=== PATIENT | male | born 1950 | race Caucasian/White ===

== ENCOUNTER 2021-06-06 23:13 | Observation (INO) | payer OTHER ==
[~2021-06-06] VITALS: Ht 167.6 cm; Wt 78.4 kg
[2021-06-06] MEDS ORDERED: LISI40TA4 PO (23:55)
[2021-06-06] MEDS ORDERED: METF10004 PO (23:55)
[2021-06-06] MEDS ORDERED: ATOR40TA75 PO (23:55)
[2021-06-07 00:46] LABS: BASO # 0.1 10^3/uL (0.0-0.2); BASO % 0.4 % (0.0-1.0); EOS # 0.3 10^3/uL (0.0-0.5); EOS % 1.7 % (0.0-3.0); HEMATOCRIT 50.9 % (42.0-52.0); HEMOGLOBIN 16.4 g/dl (13.5-17.5); LYMPH % 5.8 % (24.0-44.0); MEAN CORPUSCULAR HEMOGLOBIN 29.5 pg (27.0-33.0); MEAN CORPUSCULAR HGB CONC 32.2 g/dl (32.0-36.5); MEAN CORPUSCULAR VOLUME 91.5 fl (80.0-96.0); MONO # 1.6 10^3/uL (0.0-0.8); MONO % 8.9 % (2.0-8.0); NEUTROPHILS # 14.7 10^3/uL (1.5-8.5); NEUTROPHILS % 82.6 % (36.0-66.0); PLATELET COUNT, AUTOMATED 283 10^3/uL (150-450); RED BLOOD COUNT 5.56 10^6/uL (4.30-6.10)
[2021-06-07 01:16] LABS: WHITE BLOOD COUNT 17.8 10^3/uL (4.0-10.0)
[2021-06-07 01:27] LABS: BILIRUBIN,DIRECT 0.1 MG/DL (0.0-0.2); BILIRUBIN,TOTAL 0.5 MG/DL (0.2-1.0); CALCIUM LEVEL 9.8 MG/DL (8.8-10.2); CREATININE FOR GFR 1.7 MG/DL (0.70-1.30); GLOMERULAR FILTRATION RATE 42.4 (>42); POTASSIUM SERUM 4.7 MEQ/L (3.5-5.1); TOTAL PROTEIN 7.4 GM/DL (6.4-8.2)
[2021-06-07] MEDS ORDERED: NS 1,000 ML IV ONE (01:50)
--- NOTE | 2021-06-07 02:40 | REPVR ---
PROCEDURE INFORMATION: Exam: CT Abdomen And Pelvis Without Contrast Exam date and time: 06/07/2021 1:49 AM Age: 71 years old Clinical indication: Abdominal pain; Flank; Right; Additional info: Right flank pain TECHNIQUE: Imaging protocol: Computed tomography of the abdomen and pelvis without contrast. Radiation optimization: All CT scans at this facility use at least one of these dose optimization techniques: automated exposure control; mA and/or kV adjustment per patient size (includes targeted exams where dose is matched to clinical indication); or iterative reconstruction. COMPARISON: No relevant prior studies available. FINDINGS: Liver: Normal. No mass. Gallbladder and bile ducts: Normal. No calcified stones. No ductal dilation. Pancreas: Normal. No ductal dilation. Spleen: The spleen demonstrates punctate calcifications, consistent with remote granulomatous organism exposure. Adrenal glands: Normal. No mass. Kidneys and ureters: Obstructing 7 x 5 mm right ureteral calculus within the pelvis, approximately 5 cm from the right vesicoureteral junction. Moderate right hydroureter and hydronephrosis. Stomach and bowel: Mild diverticulosis coli. Appendix: No evidence of appendicitis. Intraperitoneal space: Unremarkable. No free air. No significant fluid collection. Vasculature: Unremarkable. No abdominal aortic aneurysm. Lymph nodes: Unremarkable. No enlarged lymph nodes. Urinary bladder: Unremarkable as visualized. Reproductive: Unremarkable as visualized. Bones/joints: Unremarkable. No acute fracture. Soft tissues: Small fat protruding inguinal hernias. IMPRESSION: 1. Obstructing 7 x 5 mm right ureteral calculus within the pelvis, approximately 5 cm from the right vesicoureteral junction. Moderate right hydroureter and hydronephrosis. 2. Mild diverticulosis coli. 3. Small fat protruding inguinal hernias. Electronically signed by: Javed Tobin On 06/07/2021 02:39:36 AM
[2021-06-07] MEDS ORDERED: NS 1,000 ML IV SCH (03:20)
[2021-06-07] MEDS ORDERED: KETOROLAC 30 MG/ML 1ML VIAL IV PRN (03:40)
[2021-06-07] MEDS ORDERED: ONDANSETRON 4MG/2ML VIAL IV PRN (03:40)
[2021-06-07] MEDS ORDERED: DEXTROSE 50% 50 ML SYRINGE IV PRN ×2 (03:40→18:55)
[2021-06-07] MEDS ORDERED: GLUCOSE 4GM CHEW TABLET PO PRN ×2 (03:40→18:55)
[2021-06-07] MEDS ORDERED: GLUCAGON INJ 1MG VIAL SC PRN ×2 (03:40→18:55)
[2021-06-07] MEDS ORDERED: MORPHINE 4 MG/ML 1ML VIAL/SYRINGE (J2270) IV PRN (03:40)
[2021-06-07] MEDS: NS 1,000 ML IV SCH ×2 (03:40→18:48)
[2021-06-07] MEDS ORDERED: ASPI-161 PO (03:51)
[2021-06-07] MEDS ORDERED: LISI40TA4 PO (03:51)
[2021-06-07] MEDS ORDERED: METF-877 PO (03:51)
[2021-06-07] MEDS ORDERED: ATOR80TA59 PO (03:51)
[2021-06-07] MEDS ORDERED: XALA0.007 OU (03:51)
[2021-06-07] MEDS ORDERED: TIMO0.5S3 OU (03:51)
[2021-06-07] MEDS ORDERED: FINA5TAB2 PO (03:51)
--- NOTE | 2021-06-07 03:53 | HPEPDOC ---
[facility] Medical History & Physical Date of Admission Jun 07, 2021 Date of Service: Jun 07, 2021 Attending Physician: KAYLIN CLARK DO History and Physical CHIEF COMPLAINT: [71 y/o male c/o right sided abd pain x1 week] HISTORY OF PRESENT ILLNESS: [This is a 71 y/o male with a pmh of hld, htn and niddm2 who presents to our ED with a cc of right sided abd/flank pain that has been increasing over the past week. Patient states that the pain is severe in nature and comes and goes. Patient states that the pain was severe to the point of vomiting several times today. Patient states that other than the pain he feels mostly fine. Patient states that he had one kidney stone approx 30 years ago but states that he was able to pass that one. Patient denies any dysuria, hematuria, diarrhea, constipation, fevers, chills, chest pain, sob, cough, wheezing, pedal edema. Patient found to have right sided obstructing stone 7x5mm on CT imaging in our ED.] PAST MEDICAL HISTORY: 1. [See HPI PAST SURGICAL HISTORY: 1. [Reviewed - none SOCIAL HISTORY: Tobacco use:[Denies] ETOH: [Denies] Illicit drug use: [Denies] FAMILY HISTORY: Reviewed - none pertinent ALLERGIES: Please see below. REVIEW OF SYSTEMS: CONSTITUTIONAL: [Denies fevers, chills]. HEENT: [Denies uri sx]. CARDIOVASCULAR: [Denies chest pain, palpitations]. RESPIRATORY: [Denies sob, wheezing]. GASTROINTESTINAL: [See HPI]. GENITOURINARY: [See HPI]. SKIN: [Denies rash]. MUSCULOSKELETAL: [Denies acute joint pain]. NEUROLOGICAL: [Denies syncope, paresthesias]. ENDOCRINE: [Hx of DM]. HEMATOLOGIC/LYMPHATIC: [Denies hx of vte]. HOME MEDICATIONS: Please see below. PHYSICAL EXAMINATION: VITAL SIGNS: Please see below. GENERAL APPEARANCE: [This is a pleasant 71 y/o male who is alert and oriented to all questioning. He does not appear to be in any acute distress.]. HEENT: [No mass or lesion. EOMI. No scleral icterus. Nares patent. Oral mucosa moist.]. CARDIOVASCULAR: [Regular rate, rhythm.]. LUNGS: [Good air flow b/l.]. ABDOMEN: [Nondistended]. MUSCULOSKELETAL: [No joint deformity appreciated]. EXTREMITIES: [No pedal edema appreciated. No overlying skin changes. Pulses intact.]. NEUROLOGICAL: [Speech clear. A+Ox3. No focal deficits]. PSYCHIATRIC: [Mood and affect appear appropriate]. LABORATORY DATA: See below. IMAGING: [CT Abd/pelvis: FINDINGS: Liver: Normal. No mass. Gallbladder and bile ducts: Normal. No calcified stones. No ductal dilation. Pancreas: Normal. No ductal dilation. Spleen: The spleen demonstrates punctate calcifications, consistent with remote granulomatous organism exposure. Adrenal glands: Normal. No mass. Kidneys and ureters: Obstructing 7 x 5 mm right ureteral calculus within the pelvis, approximately 5 cm from the right vesicoureteral junction. Moderate right hydroureter and hydronephrosis. Stomach and bowel: Mild diverticulosis coli. Appendix: No evidence of appendicitis. Intraperitoneal space: Unremarkable. No free air. No significant fluid collection. Vasculature: Unremarkable. No abdominal aortic aneurysm. Lymph nodes: Unremarkable. No enlarged lymph nodes. Urinary bladder: Unremarkable as visualized. Reproductive: Unremarkable as visualized. Bones/joints: Unremarkable. No acute fracture. Soft tissues: Small fat protruding inguinal hernias. IMPRESSION: 1. Obstructing 7 x 5 mm right ureteral calculus within the pelvis, approximately 5 cm from the right vesicoureteral junction. Moderate right hydroureter and hydronephrosis. 2. Mild diverticulosis coli. 3. Small fat protruding inguinal hernias. ] MICROBIOLOGY: Please see below. ASSESSMENT: [his is a 71 y/o male with a pmh of hld, htn and niddm2 who presents to our ED with a cc of right sided abd/flank pain that has been increasing over the past week. Patient found to have right sided obstructing stone 7x5mm on CT imaging in our ED.]. . PLAN: 1. [Nephrolithiasis - Dr. Austin, urology, has been consulted by the ED and plans to take patient to OR for stenting/stone removal. Assistance and recommendations greatly appreciated - Patient does not meet sirs criteria. However, does have leukocytosis so will begin empiric rocephin - Blood cultures, urine cultures sent - NPO diet - Toradol, morphine for pain - Zofran for nausea - admit to med surg for tx 2. CHEMO - cr elevated to 1.7 - post renal in nature. should trend downwards once obstruction is relieved post op - will monitor 3. HTN - continue lisinopril 4. HLD - continue atorvastatin 5. DM - sliding scale coverage - hypoglycemic protocol - continue asa 6. Glaucoma - continue at home eye drops DVT prophylaxis - mechanical preop]. Vital Signs Vital Signs Date Time Temp Pulse Resp B/P (MAP) Pulse Ox O2 Delivery O2 Flow Rate FiO2 06/07/21 03:00 165/81 (109) 06/07/21 02:58 79 16 94 Room Air 06/06/21 23:15 96.1 Laboratory Data Labs 24H Laboratory Tests 2 06/07/21 00:28: Lactic Acid Level 1.4 06/07/21 00:29: Immature Granulocyte % (Auto) 0.6, Neutrophils (%) (Auto) 82.6H, Lymphocytes (%) (Auto) 5.8L, Monocytes (%) (Auto) 8.9H, Eosinophils (%) (Auto) 1.7, Basophils ( %) (Auto) 0.4, Neutrophils # (Auto) 14.7H, Lymphocytes # (Auto) 1.0L, Monocytes # (Auto) 1.6H, Eosinophils # (Auto) 0.3, Basophils # (Auto) 0.1, Nucleated Red Blood Cells % (auto) 0.0, Urine Color YELLOW, Urine Appearance CLEAR, Urine pH 5.0, Urine Specific [place] 1.017, Urine Protein NEGATIVE, Urine Glucose (UA) NEGATIVE, Urine Ketones 1+H, Urine Blood 3+H, Urine Nitrite NEGATIVE, Urine Bilirubin NEGATIVE, Urine Urobilinogen 0.2, Urine Leukocyte Esterase NEGATIVE, Urine WBC (Auto) 2, Urine RBC (Auto) 54H, Urine Hyaline Casts (Auto) 0, Urine Bacteria (Auto) NEGATIVE, Urine Squamous Epithelial Cells 0, Urine Mucus (Auto) SMALL, Urine Sperm (Auto) , Anion Gap 5L, Glomerular Filtration Rate 42.4, Calcium Level 9.8, Total Bilirubin 0.5, Direct Bilirubin 0.1, Aspartate Amino Transf (AST/SGOT) 17, Alanine Aminotransferase (ALT/SGPT) 24, Alkaline Phosphatase 94, Total Protein 7.4, Albumin 4.0, Albumin/Globulin Ratio 1.2, Lipase 158 CBC/BMP Laboratory Tests 06/07/21 00:29 Home Medications Scheduled Aspirin (Aspirin EC) 81 Mg Tablet.dr, 81 MG PO DAILY Atorvastatin Calcium (Atorvastatin Calcium) 80 Mg Tablet, 80 MG PO QPM TAKES AFTER DINNERTIME Finasteride (Finasteride) 5 Mg Tablet, 5 MG PO QPM TAKES AFTER DINNERTIME Latanoprost (Xalatan) 0.005% 2.5ML Drops, 1 DROP OU QHS Lisinopril (Lisinopril) 40 Mg Tablet, 40 MG PO DAILY Metformin HCl (Metformin HCl) 1,000 Mg Tablet, 1,000 MG PO BID Timolol Maleate (Timoptic-Xe) 0.5% Delia.gel, 1 DROP OU DAILY Allergies Coded Allergies: No Known Allergies (Verified Allergy, Unknown, 06/06/21) A-FIB/CHADSVASC A-FIB History Current/History of A-Fib/PAF?: No KRISTINA EDWARDS Jun 07, 2021 03:53
[2021-06-07] MEDS ORDERED: HOME MED LIST COMPLETE! XX SCH (03:55)
[2021-06-07 04:28] LABS: RSV AMPLIFICATION NEGATIVE (NEGATIVE)
[2021-06-07] MEDS: cefTRIAXone SOD 1 GM in D5W MINI-BAG PLUS 50 ML IV SCH (04:56)
[2021-06-07 08:20] VITALS: BP 156/94
[2021-06-07] MEDS: HumaLOG INSULIN (NovoLOG) PER UNIT SC SCH ×3 (08:25→18:00)
[2021-06-07] MEDS: ASPIRIN 81MG ENTERIC TABLET PO SCH (08:32)
[2021-06-07] MEDS: TAMSULOSIN 0.4 MG CAP PO SCH (08:32)
[2021-06-07] MEDS: lisinopriL 40 MG TAB PO SCH (08:32)
[2021-06-07] MEDS: TIMOLOL XE GFS 0.5% OPHTH 5 ML OU SCH (09:00)
--- NOTE | 2021-06-07 13:46 | SMCUROLCON ---
Urology Consultation General Date of Consultation 06/07/21 Reason For Consultation This patient is seen for Ureteral Stone With Hydronephrosis. History of Present Illness This is a 71 y/o M w/ a PMH significant for HTN, HL, DM2, and nephrolithiasis (passed a stone about 20 yrs ago), admitted for CHEMO and leukocytosis 2/2 an obstructing 7mm distal R ureteral stone. He notes that he has been having worsening R flank/lower abd pain for the past wk. Ultimately the pain became to difficult to control yesterday and he therefore came to the ER. A noncontrast CT A/P was notable for moderate R hydroureteronephrosis 2/2 an 7mm stone in the distal R ureter. No other stones were seen. He notes that his pain is controlled at this time as he just got pain medication. He has had nausea and one episode of vomiting in the ER. He denies dysuria or hematuria. Past Medical History Medical History see HPI Surgical Hstory None Medications Current Medications Current Medications Medications (Trade) Dose Ordered Sig/Marco Antonio Route PRN Reason Start Time Stop Time Status Last Admin Dose Admin Aspirin (Ecotrin) 81 mg DAILY PO 06/07/21 09:00 06/07/21 08:32 Atorvastatin Calcium (Lipitor) 80 mg QPM PO 06/07/21 21:00 Ceftriaxone Sodium 1 gm/ Dextrose 50 ml @ 100 mls/hr Q24H IV 06/07/21 04:00 06/07/21 04:56 Dextrose (Dextrose 50%) 25 ml ASDIRECTED PRN IV SEE LABEL COMMENTS 06/07/21 03:40 Finasteride (Proscar) 5 mg QPM PO 06/07/21 21:00 Glucagon (Glucagon) 1 mg ASDIRECTED PRN SC SEE LABEL COMMENTS 06/07/21 03:40 Glucose (Glucose) 16 GM ASDIRECTED PRN PO SEE LABEL COMMENTS 06/07/21 03:40 Home Med (Home Med List Complete!) ASDIRECTED XX 06/07/21 03:55 06/07/21 03:55 DC Insulin Human Lispro (HumaLOG INSULIN) SEE PROTOCOL TABLE Q6H SC 06/07/21 06:00 Ketorolac Tromethamine (ToRADol) 30 mg Q6H PRN IV mod pain 06/07/21 03:40 06/12/21 03:39 Latanoprost (Xalatan 0.005% Op Soln) 1 drop QHS OU 06/07/21 21:00 Lisinopril (Prinivil) 40 mg DAILY PO 06/07/21 09:00 06/07/21 08:32 Morphine Sulfate (Morphine Sulfate Inj) 3 mg Q4H PRN IV severe pain 06/07/21 03:40 06/07/21 07:51 Ondansetron HCl (ZOFRAN INJection) 4 mg Q4HP PRN IV NAUSEA OR VOMITING 06/07/21 03:40 Sodium Chloride 1,000 ml @ 100 mls/hr Q10H IV 06/07/21 03:20 06/07/21 03:47 DC Sodium Chloride 1,000 ml @ 100 mls/hr Q10H IV 06/07/21 03:40 06/07/21 03:40 Tamsulosin HCl (Flomax) 0.4 mg DAILY PO 06/07/21 09:00 06/07/21 08:32 Timolol Maleate (Timoptic-Xe 0.5% Ophth Gfs) 1 drop DAILY OU 06/07/21 09:00 Allergies Allergies: Coded Allergies: No Known Allergies (Verified Allergy, Unknown, 06/06/21) Review of Systems Constitutional: Denies: Fever, Chills, Sweats Pulmonary: Denies: Dyspnea, Cough Cardiovascular: Denies Chest Pain, Denies Palpitations Gastrointestinal: Reports: Nausea, Vomiting, Abdominal Pain (RLQ) Genitourinary: Denies: Dysuria, Frequency, Incontinence, Hematuria Musculoskeletal: Reports: Back Pain (R flank) Neurological: Denies: Weakness, Numbness Psych: Reports: Mood Normal Physical Examination General Exam: Alert, Cooperative, No Acute Distress Chest Exam: Normal air movement Abdomen Exam: Soft, Tenderness (mild RLQ tenderness) Skin Exam: Nl turgor and temperature Psych Exam: Mental status NL, Mood NL Vital Signs/I&O Vital Signs Date Time Temp Pulse Resp B/P (MAP) Pulse Ox O2 Delivery O2 Flow Rate FiO2 06/07/21 08:20 18 Room Air 06/07/21 08:20 156/94 (114) 06/07/21 08:15 98.1 82 94 Laboratory Data 24H Labs Laboratory Tests 2 06/07/21 00:28: Lactic Acid Level 1.4 06/07/21 00:29: Immature Granulocyte % (Auto) 0.6, Neutrophils (%) (Auto) 82.6H, Lymphocytes (%) (Auto) 5.8L, Monocytes (%) (Auto) 8.9H, Eosinophils (%) (Auto) 1.7, Basophils (%) (Auto) 0.4, Neutrophils # (Auto) 14.7H, Lymphocytes # (Auto) 1.0L, Monocytes # (Auto) 1.6H, Eosinophils # (Auto) 0.3, Basophils # (Auto) 0.1, Nucleated Red Blood Cells % (auto) 0.0, Urine Color YELLOW, Urine Appearance CLEAR, Urine pH 5.0, Urine Specific [place] 1.017, Urine Protein NEGATIVE, Urine Glucose (UA) NEGATIVE, Urine Ketones 1+H, Urine Blood 3+H, Urine Nitrite NEGATIVE, Urine Bilirubin NEGATIVE, Urine Urobilinogen 0.2, Urine Leukocyte Esterase NEGATIVE, Urine WBC (Auto) 2, Urine RBC (Auto) 54H, Urine Hyaline Casts (Auto) 0, Urine Bacteria (Auto) NEGATIVE, Urine Squamous Epithelial Cells 0, Urine Mucus (Auto) SMALL, Urine Sperm (Auto) , Anion Gap 5L, Glomerular Filtration Rate 42.4, Calcium Level 9.8, Total Bilirubin 0.5, Direct Bilirubin 0.1, Aspartate Amino Transf (AST/SGOT) 17, Alanine Aminotransferase (ALT/SGPT) 24, Alkaline Phosphatase 94, Total Protein 7.4, Albumin 4.0, Albumin/Globulin Ratio 1.2, Lipase 158 06/07/21 03:32: Coronavirus (COVID-19)(PCR) NEGATIVE, Influenza Type A (RT-PCR) NEGATIVE, Influenza Type B (RT-PCR) NEGATIVE, Respiratory Syncytial Virus (PCR) NEGATIVE 06/07/21 11:29: Bedside Glucose ([facility] Panel) 123H CBC/BMP Laboratory Tests 06/07/21 00:29 Microbiology Microbiology 06/07/21 Blood Culture, Received Pending 06/07/21 Blood Culture, Received Pending Assessment This is a 71 y/o M w/ CHEMO 2/2 an obstructing 7mm distal R ureteral stone. I explained that it is unlikely that he will pass this stone given its size. I therefore recommended that we set him up for a cystoscopy, R ureteroscopy w/ laser lithotripsy, and R ureteral stent placement. After a discussion of the risks and benefits of the procedure, informed consent was signed. Plan - IVF hydration - flomax - strain all urine - morphine for pain - NPO - plan for surgery later today unless he passes his stone MARIETTA CHAIDEZ MD Jun 07, 2021 13:46
[2021-06-07 14:00] VITALS: BP 150/91
[2021-06-07] MEDS ORDERED: CONRAY-60 60% 50ML VIAL (Q9961) As Ordered ONE (16:16)
[2021-06-07] MEDS ORDERED: ONDANSETRON 4MG/2ML VIAL As Ordered ONE (16:17)
[2021-06-07] MEDS ORDERED: METOCLOPRAMIDE INJ 10MG/2ML VIAL (J2765 PER 1) As Ordered ONE (16:17)
[2021-06-07] MEDS ORDERED: MIDAZOLAM INJ 2MG/2ML VIAL (J2250 PER 1MG) As Ordered ONE (16:17)
[2021-06-07] MEDS ORDERED: propofoL 200 MG/20 ML VIAL As Ordered ONE (16:17)
[2021-06-07] MEDS ORDERED: LIDOCAINE 2% 100MG/5ML SDV (FOR ANES.) As Ordered ONE (16:17)
[2021-06-07] MEDS ORDERED: fentaNYL 100 MCG/2 ML INJECTION (J3010) As Ordered ONE (16:17)
[2021-06-07] MEDS ORDERED: ACETAMINOPHEN 1000MG 100ML IV BTL (OFIRMEV) (J0131 PER 10MG) As Ordered ONE (17:40)
[2021-06-07] MEDS ORDERED: PHENYLephrine 500MCG 5ML (100MCG/ML) SYRINGE As Ordered ONE (17:40)
--- NOTE | 2021-06-07 17:48 | REP ---
INDICATION: RIGHT STENT PLACEMENT. COMPARISON: CT 06/07/2021. TECHNIQUE: Two C-arm views abdomen and pelvis. FINDINGS: Contrast material partially opacifies the right pelvocaliceal system, which appears mildly dilated. A right ureteral stent is placed, the proximal end is coiled in the right renal pelvis and the distal end in the urinary bladder. IMPRESSION: 5 seconds of fluoroscopy time was utilized. <Electronically signed by Montser Esqueda > 06/07/21 0159
[2021-06-07 18:30] VITALS: BP 154/75
[2021-06-07 19:00] VITALS: BP 153/77
--- NOTE | 2021-06-07 19:33 | ECGEPIP ---
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
[2021-06-07] MEDS ORDERED: LATANOPROST 0.005% OPHTH SOLN 2.5 ML OU SCH (21:00)
[2021-06-07] MEDS ORDERED: ATORVASTATIN 20 MG TAB PO SCH (21:00)
[2021-06-07] MEDS ORDERED: FINASTERIDE 5 MG TAB PO SCH (21:00)
[2021-06-07] MEDS ORDERED: HumaLOG INSULIN (NovoLOG) PER UNIT SC SCH (21:00)
[2021-06-07 22:20] VITALS: BP 155/83
[2021-06-07 23:19] VITALS: BP 96/64
[2021-06-08 02:29] VITALS: BP 174/98
[2021-06-08] MEDS: cefTRIAXone SOD 1 GM in D5W MINI-BAG PLUS 50 ML IV SCH (03:36)
[2021-06-08] MEDS: NS 1,000 ML IV SCH ×2 (03:36→08:22)
[2021-06-08 06:23] VITALS: BP 144/64
[2021-06-08 06:38] LABS: MEAN CORPUSCULAR HEMOGLOBIN 29.5 pg (27.0-33.0); MEAN CORPUSCULAR HGB CONC 32.5 g/dl (32.0-36.5); MEAN CORPUSCULAR VOLUME 90.9 fl (80.0-96.0); PLATELET COUNT, AUTOMATED 245 10^3/uL (150-450); WHITE BLOOD COUNT 7.9 10^3/uL (4.0-10.0)
[2021-06-08 07:04] LABS: BLOOD UREA NITROGEN 22 MG/DL (7-18); CALCIUM LEVEL 8.1 MG/DL (8.8-10.2); CARBON DIOXIDE LEVEL 27 MEQ/L (21-32); CHLORIDE LEVEL 111 MEQ/L (98-107); CREATININE FOR GFR 1.02 MG/DL (0.70-1.30); GLOMERULAR FILTRATION RATE > 60.0 (>42); GLUCOSE, FASTING 137 MG/DL (70-100); POTASSIUM SERUM 4.4 MEQ/L (3.5-5.1); SODIUM LEVEL 142 MEQ/L (136-145)
--- NOTE | 2021-06-08 07:49 | IPNPDOC ---
Subjective Review oF Systems Chief Complaint The patient is a 71-year-old male admitted with a reason for visit of Ureteral Stone With Hydronephrosis. Events since Last Encounter No acute events o/n. His pain is much better. No n/v. No f/c/ns. Objective Physical Examination General Exam: Alert, Cooperative, No Acute Distress ABDOMEN EXAM: Soft; No: Tenderness Skin Exam: Nl turgor and temperature Neuro Exam: Normal Speech Psych Exam: Mental status NL, Mood NL Vital Signs/I&O Vital Signs Date Time Temp Pulse Resp B/P (MAP) Pulse Ox O2 Delivery O2 Flow Rate FiO2 06/08/21 06:23 98.5 89 19 144/64 (90) 93 Room Air 06/07/21 21:00 2.0 I&O- Last 24 Hours up to 6 AM 06/08/21 06:00 Intake Total 2230 ml Output Total 1405 ml Balance 825 ml Laboratory Data Labs 24H Laboratory Tests 2 06/07/21 11:29: Bedside Glucose (Misc Panel) 123H 06/07/21 17:20: 06/07/21 18:44: Bedside Glucose (Misc Panel) 105 06/07/21 21:20: Bedside Glucose (Misc Panel) 292H 06/08/21 05:46: Nucleated Red Blood Cells % (auto) 0.0, Anion Gap 4L, Glomerular Filtration Rate > 60.0, Calcium Level 8.1#L CBC/BMP Laboratory Tests 06/08/21 05:46 FSBS Laboratory Tests Test 06/07/21 11:29 06/07/21 18:44 06/07/21 21:20 Range/Units Bedside Glucose (Misc Panel) 123 105 292 83-110 MG/DL Microbiology Microbiology 06/07/21 Blood Culture - Preliminary, Resulted No growth after 24 hours . All specim... 06/07/21 Blood Culture - Preliminary, Resulted No growth after 24 hours . All specim... Assessment/Plan Date Seen The patient was seen on 06/08/21. Patient Summary This is a71 y/o M POD1 s/p cysto, R ureteroscopy w/ laser lithotripsy w/ basket extraction of stones, R ureteral stent placement. He feels much better. His WBC is down to 7.9. His Cr is down to normal at 1. Plan/VTE VTE Prophylaxis Ordered?: Yes VTE Exclusion Mechanical Proph: N/A:VTE Prophy Ordered Plan - ok for discharge from urologic standpoint - my office will arrange f/u to remove his stent (should be in 3-4 wks) MARIETTA CHAIDEZ MD Jun 08, 2021 07:49
[2021-06-08] MEDS: lisinopriL 40 MG TAB PO SCH (08:22)
[2021-06-08] MEDS: TIMOLOL XE GFS 0.5% OPHTH 5 ML OU SCH (08:22)
[2021-06-08] MEDS: TAMSULOSIN 0.4 MG CAP PO SCH (08:22)
[2021-06-08] MEDS: HumaLOG INSULIN (NovoLOG) PER UNIT SC SCH ×2 (08:22→12:28)
[2021-06-08] MEDS: ASPIRIN 81MG ENTERIC TABLET PO SCH (08:22)
--- NOTE | 2021-06-08 11:44 | RO ---
OPERATIVE NOTE DATE OF OPERATION: 06/07/2021 PREOPERATIVE DIAGNOSIS: Obstructing right ureteral stone. POSTOPERATIVE DIAGNOSIS: Obstructing right ureteral stone. PROCEDURE: Cystoscopy, right ureteroscopy with laser lithotripsy and basket extraction of stones, right retrograde pyelogram with intraoperative interpretative images, right ureteral stent placement. SURGEON: Favian Austin MD JEWEL WAXER: None. ANESTHESIA: General. PREOPERATIVE INDICATIONS: This is a 71-year-old male who presented with right-sided flank pain and was found to have acute kidney injury due to an obstructing 7 mm distal right ureteral stone. He was brought to the operating room today for treatment. DESCRIPTION OF PROCEDURE: The patient was brought to the operating room and general anesthesia was induced. He had already been placed on broad-spectrum antibiotics. He was then placed in the dorsal lithotomy position and prepped and draped in the usual sterile fashion. A rigid cystoscope was then inserted in urethral meatus and advanced to the bladder. A guidewire was advanced up to the right collecting system. I then went up the right collecting system with a short semi-rigid ureteroscope. I went up to the distant ureter where a 7 mm stone was seen. The stone was fragmented into smaller pieces using a 272 micron laser fiber. All the fibers were then removed using a basket. I then examined the more proximal ureter and no additional stones were seen. A retrograde pyelogram was performed and was notable for moderate right hydronephrosis, but no extravasation. I then withdrew the ureteroscope and once again no distal stones were seen. I utilized the guidewire to advance a 6 [place] 22-32 cm JJ ureteral stent up the right collecting system. The wire was removed and there were adequate curls of the stent in the right renal pelvis and the bladder. The bladder was then emptied off all fluids and this is my conclusion of the procedure. The patient was taken out of the dorsal lithotomy position, awakened from anesthesia and transferred to the recovery room in stable condition. ESTIMATED BLOOD LOSS: 5 mm. COMPLICATIONS: None. SPECIMEN: Kidney stones. PLAN: The patient will be monitored in the hospital probably for another day to see if his kidney function improves. He will follow up in the urology clinic in a few weeks for stent removal. CAPRI
--- NOTE | 2021-06-08 13:06 | DS.PDOC ---
Discharge Summary General Date of Admission Jun 06, 2021 at 23:14 Date of Discharge 06/08/21 Discharge Summary PROCEDURES PERFORMED DURING STAY: [None]. ADMITTING DIAGNOSES: Nephrolithiasis acute kidney injury History of hypertension Hyperlipidemia Type 2 diabetes Glaucoma DISCHARGE DIAGNOSES: Nephrolithiasis acute kidney injury History of hypertension Hyperlipidemia Type 2 diabetes Glaucoma COMPLICATIONS/CHIEF COMPLAINT: Ureteral Stone With Hydronephrosis. HISTORY OF PRESENT ILLNESS: "This is a 71 y/o male with a pmh of hld, htn and niddm2 who presents to our ED with a cc of right sided abd/flank pain that has been increasing over the past week. Patient states that the pain is severe in nature and comes and goes. Patient states that the pain was severe to the point of vomiting several times today. Patient states that other than the pain he feels mostly fine. Patient states that he had one kidney stone approx 30 years ago but states that he was able to pass that one. Patient denies any dysuria, hematuria, diarrhea, constipation, fevers, chills, chest pain, sob, cough, wheezing, pedal edema." HOSPITAL COURSE: Patient was admitted for CHEMO secondary to an obstructing 7 mm distal right ureteral stone. The stone was elected passed therefore Dr. Austin placed a right ureteral stent. Patient's creatinine normalized and his acute kidney injury resolved. Patient was voiding spontaneously. He had no pain on discharge. Leukocytosis resolved. He was discharged with urological follow-up. DISCHARGE MEDICATIONS: Please see below. ALLERGIES: Please see below. PHYSICAL EXAMINATION ON DISCHARGE: VITAL SIGNS: please see below General: NAD, comfortable HEENT: PERRLA, EOMI, sclerae clear Neck: supple, normal ROM, no JVD Respiratory: lungs CTAB, no wheeze, no rales, no crackles CVS: RRR, normal S1, S2, no murmurs Abdo: soft, no masses, no hepatosplenomegaly, BS+, no rebound tenderness Extremities: no edema, pulses 2+ MSK: no joint deformities, normal ROM Neuro: no focal neuro deficits, moving all 4 extremities, CN2-12 intact. Strength 5/5 in all 4 extremities. No nystagmus. Psych: calm, cooperative, AAO x 3 LABORATORY DATA: Please see below. IMAGING: CT abdomen pelvis without contrast on 06/07/2021: IMPRESSION: 1. Obstructing 7 x 5 mm right ureteral calculus within the pelvis, approximately 5 cm from the right vesicoureteral junction. Moderate right hydroureter and hydronephrosis. 2. Mild diverticulosis coli. 3. Small fat protruding inguinal hernias. Retrograde pyelogram on 06/07/2021: FINDINGS: Contrast material partially opacifies the right pelvocaliceal system, which appears mildly dilated. A right ureteral stent is placed, the proximal end is coiled in the right renal pelvis and the distal end in the urinary bladder. IMPRESSION: 5 seconds of fluoroscopy time was utilized. PROGNOSIS: Good ACTIVITY: [As tolerated]. DIET: Consistent carbohydrate DISCHARGE PLAN: Discharge home with PCP follow-up in 3 days and urology follow- up in 3 to 4 weeks for stent removal. Follow-up final blood cultures as outpatient. DISPOSITION: Home with home health DISCHARGE INSTRUCTIONS: . Please follow-up with your primary care doctor within 3-5 days . Please follow-up with urology within 3 to 4 weeks . Please taking medications as prescribed. . If you develop bleeding, chest pain, shortness of breath, seizures, nausea, fevers, or otherwise worsening of your symptoms, please call 911 or return to the nearest emergency room DISCHARGE CONDITION: [Stable]. TIME SPENT ON DISCHARGE: 35 minutes Vital Signs/I&Os Vital Signs Date Time Temp Pulse Resp B/P (MAP) Pulse Ox O2 Delivery O2 Flow Rate FiO2 06/08/21 06:23 98.5 89 19 144/64 (90) 93 Room Air 06/07/21 21:00 2.0 I&O- Last 24 Hours up to 6 AM 06/08/21 05:59 Intake Total 2230 ml Output Total 1405 ml Balance 825 ml Laboratory Data Labs 24H Laboratory Tests 2 06/07/21 17:20: 06/07/21 18:44: Bedside Glucose (Misc Panel) 105 06/07/21 21:20: Bedside Glucose (Misc Panel) 292H 06/08/21 05:46: Nucleated Red Blood Cells % (auto) 0.0, Anion Gap 4L, Glomerular Filtration Rate > 60.0, Calcium Level 8.1#L 06/08/21 08:29: Urine Color STRAW, Urine Appearance HAZY, Urine pH 5.0, Urine Specific Orange 1.006, Urine Protein 1+H, Urine Glucose (UA) NEGATIVE, Urine Ketones NEGATIVE, Urine Blood 3+H, Urine Nitrite NEGATIVE, Urine Bilirubin NEGATIVE, Urine Urobilinogen 0.2, Urine Leukocyte Esterase TRACEH, Urine WBC (Auto) 7H, Urine RBC (Auto) TNTCH, Urine Hyaline Casts (Auto) 0, Urine Bacteria (Auto) NEGATIVE, Urine Squamous Epithelial Cells 0, Urine Mucus (Auto) SMALL, Urine Sperm (Auto) 06/08/21 11:39: Bedside Glucose (Misc Panel) 154H CBC/BMP Laboratory Tests 06/08/21 05:46 FSBS Laboratory Tests Test 06/07/21 18:44 06/07/21 21:20 06/08/21 11:39 Range/Units Bedside Glucose (Misc Panel) 105 292 154 83-110 MG/DL Microbiology Microbiology 06/08/21 Urine Culture, Received Pending 06/07/21 Blood Culture - Preliminary, Resulted No growth after 24 hours . All specim... 06/07/21 Blood Culture - Preliminary, Resulted No growth after 24 hours . All specim... Discharge Medications Scheduled Aspirin (Aspirin EC) 81 Mg Tablet.dr, 81 MG PO DAILY, (Reported) Atorvastatin Calcium (Atorvastatin Calcium) 80 Mg Tablet, 80 MG PO QPM, (Reported) TAKES AFTER DINNERTIME Finasteride (Finasteride) 5 Mg Tablet, 5 MG PO DAILY, (Reported) Hydrochlorothiazide (Hydrochlorothiazide) 25 Mg Tablet, 1 TAB PO BID Latanoprost (Xalatan) 0.005% 2.5ML Drops, 1 DROP OU QHS, (Reported) Lisinopril (Lisinopril) 40 Mg Tablet, 40 MG PO DAILY, (Reported) Metformin HCl (Metformin HCl) 1,000 Mg Tablet, 1,000 MG PO BID, (Reported) Tamsulosin HCl (Flomax) 0.4 Mg Capsule, 0.4 MG PO QPM, (Reported) TAKES AFTER DINNERTIME Timolol Maleate (Timoptic-Xe) 0.5% Delia.gel, 1 DROP OU DAILY, (Reported) Allergies Coded Allergies: No Known Allergies (Verified Allergy, Unknown, 06/06/21) SHY HANNA MD Jun 08, 2021 13:06
[2021-06-08] MEDS ORDERED: FLOM0.4C39 PO (13:08)
[2021-06-08] MEDS ORDERED: CEFD1CAP8 PO (13:08)
[2021-06-16 23:12] LABS: Ca Ox Monohydrate 100 % (.); Size 3x2 mm (.)
== END 2021-06-08 14:26 | disposition home health service (06) ==
LOC: EDBD 23:13 → M ED 23:13 → M ED INP 23:14 → ENRESERV 06-07 06:01 → M MS5PR 06-07 08:10
PROVIDERS: ADMIT Internal Medicine; ATTEND Internal Medicine
DX: N13.1 Hydronephrosis with ureteral stricture, not elsewhere classified (principal); N17.9 Acute kidney failure, unspecified; I10 Essential (primary) hypertension; E78.5 Hyperlipidemia, unspecified; E11.9 Type 2 diabetes mellitus without complications; Z87.442 Personal history of urinary calculi; D72.829 Elevated white blood cell count, unspecified; H40.9 Unspecified glaucoma; Z79.899 Other long term (current) drug therapy; Z79.82 Long term (current) use of aspirin; Z79.84 Long term (current) use of oral hypoglycemic drugs
CPT/HCPCS: 36415; 52356; 74176; 74420; 80048; 80076; 81001; 82365; 83605; 83690; 85025; 85027; 87040; 87086; 87631; 88300; 93005; 93041; 96361; 96365; 96375; 96376; 99285; C1769; C2617; G0378; J0131; J0696; J2250; J2270; J2370; J2405; J2765; J3010; Q9961

== ENCOUNTER 2021-06-22 16:02 | Inpatient (IN) | payer OTHER ==
[~2021-06-22] VITALS: Ht 167.6 cm; Wt 79.2 kg
[~2021-06-22 16:02] MED LIST: ASPI-161 PO; ATOR40TA75 PO; ATOR80TA59 PO; CEFD300C41 PO; FINA5TAB2 PO; FLOM0.4C39 PO; LISI40TA4 PO; METF-877 PO; METF10004 PO; TIMO0.5S3 OU; XALA0.007 OU
[2021-06-22] MEDS ORDERED: hydrALAZINE 20MG/ML 1ML VIAL (J0360 PER 20MG) IV ONE ×2 (18:10→23:45)
[2021-06-22 20:19] LABS: BASO # 0.1 10^3/uL (0.0-0.2); BASO % 0.4 % (0.0-1.0); BLOOD UREA NITROGEN 14 MG/DL (7-18); CALCIUM LEVEL 8.7 MG/DL (8.8-10.2); CARBON DIOXIDE LEVEL 30 MEQ/L (21-32); CHLORIDE LEVEL 103 MEQ/L (98-107); CK-MB VALUE MASS 1.5 NG/ML (<3.6); CPK CREATINE PHOSPHOKINASE 49 U/L (39-308); CREATININE FOR GFR 0.91 MG/DL (0.70-1.30); EOS # 0.5 10^3/uL (0.0-0.5); GLOMERULAR FILTRATION RATE > 60.0 (>42); GLUCOSE, FASTING 119 MG/DL (70-100); HEMATOCRIT 45.1 % (42.0-52.0); HEMOGLOBIN 14.7 g/dl (13.5-17.5); LYMPH # 1.9 10^3/uL (1.5-5.0); LYMPH % 17.1 % (24.0-44.0); MAGNESIUM LEVEL 1.6 MG/DL (1.8-2.4); MB/CK RELATIVE INDEX 3.06 (< OR =4); MEAN CORPUSCULAR HEMOGLOBIN 29.3 pg (27.0-33.0); MEAN CORPUSCULAR HGB CONC 32.6 g/dl (32.0-36.5); MEAN CORPUSCULAR VOLUME 89.8 fl (80.0-96.0); MONO # 0.8 10^3/uL (0.0-0.8); MONO % 7.5 % (2.0-8.0); NEUTROPHILS # 7.9 10^3/uL (1.5-8.5); NEUTROPHILS % 70.5 % (36.0-66.0); PLATELET COUNT, AUTOMATED 301 10^3/uL (150-450); POTASSIUM SERUM 3.5 MEQ/L (3.5-5.1); RED BLOOD COUNT 5.02 10^6/uL (4.30-6.10); SODIUM LEVEL 142 MEQ/L (136-145); TROPONIN I < 0.02 NG/ML (< 0.10); WHITE BLOOD COUNT 11.3 10^3/uL (4.0-10.0)
[2021-06-22] MEDS ORDERED: MAG SULF 1GM/100ML (MAG RUN) 1 GM in IV 1 EA IV ONE ×2 (20:45→22:00)
[2021-06-22] MEDS ORDERED: HumaLOG INSULIN (NovoLOG) PER UNIT SC SCH (21:00)
[2021-06-22] MEDS ORDERED: SPIR-10 PO (22:53)
[2021-06-22] MEDS ORDERED: CHLO125TA PO (22:53)
[2021-06-22] MEDS ORDERED: SPIRONOLACTONE 12.5MG PER 1/2 TABLET PO ONE (23:00)
[2021-06-22] MEDS ORDERED: CHLORTHALIDONE 12.5MG PER 1/2 TABLET PO ONE (23:00)
[2021-06-23 00:19] LABS: CK-MB VALUE MASS 1.1 NG/ML (<3.6); TROPONIN I < 0.02 NG/ML (< 0.10)
[2021-06-23 00:20] LABS: CPK CREATINE PHOSPHOKINASE 76 U/L (39-308); MB/CK RELATIVE INDEX 1.44 (< OR =4)
[2021-06-23] MEDS ORDERED: GLUCOSE 4GM CHEW TABLET PO PRN (00:20)
[2021-06-23] MEDS ORDERED: MAALOX 30 ML SUSP *UDC PO PRN (00:20)
[2021-06-23] MEDS ORDERED: ACETAMINOPHEN TAB 650MG DOSE (2X325MG) PO PRN (00:20)
[2021-06-23] MEDS ORDERED: MOM 30ML SUSPENSION UDC PO PRN (00:20)
[2021-06-23] MEDS ORDERED: DEXTROSE 50% 50 ML SYRINGE IV PRN (00:20)
[2021-06-23] MEDS ORDERED: GLUCAGON INJ 1MG VIAL SC PRN (00:20)
[2021-06-23] MEDS ORDERED: niCARdipine IV 40 MG in IV 1 EA IV SCH ×2 (00:30→02:55)
[2021-06-23] MEDS ORDERED: NITROPRUSSIDE SODIUM 50 MG in IV 1 EA IV SCH (00:30)
[2021-06-23 00:45] LABS: NT-PRO BNP 399 PG/ML (<125)
[2021-06-23 01:27] LABS: RSV AMPLIFICATION NEGATIVE (NEGATIVE)
[2021-06-23] MEDS ORDERED: HYDR-3490 PO ×2 (02:02→11:27)
[2021-06-23] MEDS ORDERED: FLOM0.4C39 PO (02:02)
[2021-06-23] MEDS ORDERED: HOME MED LIST COMPLETE! XX SCH (02:05)
[2021-06-23] MEDS ORDERED: HumaLOG INSULIN (NovoLOG) PER UNIT SC SCH (07:30)
[2021-06-23 07:32] LABS: HEMATOCRIT 45.5 % (42.0-52.0); HEMOGLOBIN 15.4 g/dl (13.5-17.5); MEAN CORPUSCULAR HEMOGLOBIN 29.7 pg (27.0-33.0); MEAN CORPUSCULAR HGB CONC 33.8 g/dl (32.0-36.5); MEAN CORPUSCULAR VOLUME 87.8 fl (80.0-96.0); PLATELET COUNT, AUTOMATED 270 10^3/uL (150-450); RED BLOOD COUNT 5.18 10^6/uL (4.30-6.10); WHITE BLOOD COUNT 12.2 10^3/uL (4.0-10.0)
[2021-06-23 08:03] LABS: ALBUMIN 3.7 GM/DL (3.2-5.2); ALT/SGPT 22 U/L (12-78); BILIRUBIN,TOTAL 0.7 MG/DL (0.2-1.0); BLOOD UREA NITROGEN 14 MG/DL (7-18); CALCIUM LEVEL 8.9 MG/DL (8.8-10.2); CARBON DIOXIDE LEVEL 28 MEQ/L (21-32); CHLORIDE LEVEL 101 MEQ/L (98-107); CREATININE FOR GFR 0.87 MG/DL (0.70-1.30); GLOMERULAR FILTRATION RATE > 60.0 (>42); GLUCOSE, FASTING 182 MG/DL (70-100); POTASSIUM SERUM 3.8 MEQ/L (3.5-5.1); SODIUM LEVEL 138 MEQ/L (136-145); TOTAL PROTEIN 6.9 GM/DL (6.4-8.2)
[2021-06-23] MEDS ORDERED: TIMOLOL XE GFS 0.5% OPHTH 5 ML OU SCH (09:00)
[2021-06-23] MEDS ORDERED: ENOXAPARIN 40MG/0.4ML SYRINGE (J1650 PER 10MG) SC SCH (09:00)
[2021-06-23] MEDS ORDERED: ASPIRIN 81MG ENTERIC TABLET PO SCH (09:00)
[2021-06-23] MEDS ORDERED: hydroCHLOROthiazide 12.5 MG CAPSULE PO SCH (09:00)
[2021-06-23] MEDS ORDERED: FINASTERIDE 5 MG TAB PO SCH ×2 (09:00)
[2021-06-23] MEDS ORDERED: lisinopriL 40 MG TAB PO SCH (09:00)
[2021-06-23 12:02] LABS: HEMOGLOBIN A1c 7.2 %
[2021-06-23 14:15] VITALS: BP 167/91
[2021-06-23] MEDS ORDERED: ATORVASTATIN 20 MG TAB PO SCH (18:00)
[2021-06-23] MEDS ORDERED: TAMSULOSIN 0.4 MG CAP PO SCH (18:00)
[2021-06-23] MEDS ORDERED: LATANOPROST 0.005% OPHTH SOLN 2.5 ML OU SCH (21:00)
== END 2021-06-23 15:04 | disposition home or self-care (01) | DRG 305 ==
LOC: M ED 16:02 → M ED INP 16:03 → ENRESERV 06-23 02:06
PROVIDERS: ADMIT Internal Medicine; ATTEND Internal Medicine
DX: I16.0 Hypertensive urgency (principal); E11.9 Type 2 diabetes mellitus without complications; E78.5 Hyperlipidemia, unspecified; N40.0 Benign prostatic hyperplasia without lower urinary tract symptoms; Z79.82 Long term (current) use of aspirin; Z79.899 Other long term (current) drug therapy; Z20.822 Contact with and (suspected) exposure to COVID-19; I10 Essential (primary) hypertension; H40.9 Unspecified glaucoma

== ENCOUNTER → 2021-10-20 | Outpatient (CLI) | payer OTHER ==
[~2021-10-20] MED LIST changes: +CHLO125TA PO; +HYDR-3490 PO; +SPIR-10 PO
== END ==
LOC: M SLEEP 20:00
PROVIDERS: ATTEND Nurse Practitioner Primary Care
DX: G47.33 Obstructive sleep apnea (adult) (pediatric) (principal)

== ENCOUNTER → 2022-10-24 | Outpatient (REF) | payer OTHER ==
[2022-10-24 18:34] LABS: CREATININE, URINE 63.9 MG/DL
== END ==
LOC: M LAB REF 16:59
PROVIDERS: ATTEND Internal Medicine Nephrology
DX: N18.4 Chronic kidney disease, stage 4 (severe) (principal); E11.22 Type 2 diabetes mellitus with diabetic chronic kidney disease

== ENCOUNTER 2023-09-23 06:21 | Day surgery (SDC) | payer OTHER ==
[~2023-09-23] VITALS: Ht 170.2 cm; Wt 78.0 kg
[~2023-09-23 06:21] MED LIST changes: +ALLO10TA PO; +ALOG12.5 PO; +CEFD1CAP9 PO; -CEFD300C41 PO; +CYCLOPENTOLATE 1% OPHTH SOLN 2ML BTL OD SCH; +FLURBIPROFEN 0.03% OPHTH SOLN 2.5 ML OD SCH; +ISTA0.5S OU; +NORV5TAB PO; +OPTI0.5D2 OU; +PHENYLEPHRINE 2.5% OPHTH SOL 2ML OD SCH; +POTA10CA60 PO; +SYNJ1TAB PO; +TETRACAINE 0.5% OPHTH SOLN 4ML OD SCH
[2023-09-23] MEDS ORDERED: LIDOCAINE 1% SDV 5ML VIAL As Ordered ONE (06:45)
[2023-09-23] MEDS ORDERED: CEFUROXIME 1MG/0.1ML INTRACAMERAL INJ As Ordered ONE (06:45)
[2023-09-23] MEDS ORDERED: LR 1,000 ML IV SCH (07:00)
[2023-09-23] MEDS ORDERED: INSULIN LISPRO (NovoLOG) PER UNIT SC PRN (07:20)
[2023-09-23] MEDS ORDERED: GLUCOSE 4GM CHEW TABLET PO PRN (07:20)
[2023-09-23] MEDS ORDERED: DEXTROSE 50% 50ML SYRINGE IV PRN (07:20)
[2023-09-23] MEDS ORDERED: GLUCAGON INJ 1MG VIAL SC PRN (07:20)
[2023-09-23] MEDS ORDERED: MIDAZOLAM INJ 2MG/2ML VIAL As Ordered ONE (07:22)
[2023-09-23 08:37] VITALS: BP 136/71; TEMP 98; O2SAT 96
== END 2023-09-23 08:51 | disposition home or self-care (01) ==
LOC: M SDC 06:21
PROVIDERS: ATTEND Ophthalmology
DX: H25.11 Age-related nuclear cataract, right eye (principal); I10 Essential (primary) hypertension; E78.5 Hyperlipidemia, unspecified; E11.9 Type 2 diabetes mellitus without complications; K21.9 Gastro-esophageal reflux disease without esophagitis; G47.33 Obstructive sleep apnea (adult) (pediatric); Z87.891 Personal history of nicotine dependence; Z79.899 Other long term (current) drug therapy; Z79.82 Long term (current) use of aspirin
CPT/HCPCS: 66984; J0697; J2250; V2632